=== PATIENT | female | born 1970 | race Two or more races ===

== ENCOUNTER 2022-10-04 12:35 | Emergency (ER) | payer OTHER ==
[~2022-10-04] VITALS: Ht 154.9 cm; Wt 81.1 kg
[2022-10-04] MEDS ORDERED: IBUP-1454 PO (14:32)
[2022-10-04 15:13] VITALS: BP 124/77
== END 2022-10-04 15:15 | disposition home or self-care (01) ==
LOC: ER 12:35
DX: S16.1XXA Strain of muscle, fascia and tendon at neck level, initial encounter (principal); S39.012A Strain of muscle, fascia and tendon of lower back, initial encounter; V89.2XXA Person injured in unspecified motor-vehicle accident, traffic, initial encounter; Y93.89 Activity, other specified; Y92.89 Other specified places as the place of occurrence of the external cause; Y99.8 Other external cause status
CPT/HCPCS: 72040; 72100